=== PATIENT | female | born 1995 | race Caucasian/White ===

== ENCOUNTER 2024-02-09 04:27 | Day surgery (SDC) | payer OTHER ==
[~2024-02-09] VITALS: Ht 160 cm; Wt 73.2 kg
[2024-02-09] VITALS (218 sets, daily range): BP systolic 93–158; BP diastolic 55–100
[2024-02-09] MEDS ORDERED: FAMOTIDINE 20 MG/TAB PO PRN (08:50)
[2024-02-09] MEDS ORDERED: ALBUTEROL SULFATE 2.5 MG VIAL IN PRN (08:50)
[2024-02-09] MEDS ORDERED: SCOPOLAMINE 1.5 MG DIS TD PRN (08:50)
[2024-02-09] MEDS ORDERED: CYANOCOBALAMIN 500 MCG/TAB ( B12) PO PRN (08:50)
[2024-02-09] MEDS ORDERED: cloNIDine HCL 0.1 MG/TAB PO PRN (08:50)
[2024-02-09] MEDS ORDERED: LACTATED RINGER'S 1,000 ML IV PRN ×3 (08:50→19:00)
[2024-02-09] MEDS ORDERED: PANTOPRAZOLE SODIUM Sesquihydr 40 MG/TAB PO PRN (08:50)
[2024-02-09] MEDS ORDERED: diazePAM 5 MG/TAB PO PRN ×2 (08:50)
[2024-02-09] MEDS ORDERED: ASCORBIC ACID 4,000 MG in SODIUM CHLORIDE 0.9% 1,000 ML IV SCH (09:00)
[2024-02-09] MEDS ORDERED: TRAZODONE50 MG PO (09:39)
[2024-02-09] MEDS ORDERED: DICYCLOMINE HCL20 MG PO (09:39)
[2024-02-09] MEDS ORDERED: XANAX0.5 MG PO (09:40)
[2024-02-09] MEDS ORDERED: ROPINIROLE1 MG PO (09:41)
[2024-02-09] MEDS ORDERED: ZOFRAN4 MG/TAB PO (09:41)
[2024-02-09] MEDS ORDERED: STOOL SOFTENER100 M1 PO (09:42)
[2024-02-09] MEDS ORDERED: NALTREXONE HCL 50 MG/TAB VT PRN (09:45)
[2024-02-09] MEDS ORDERED: DiphenhydrAMINE HCL 50 MG/ML SDV IV PRN (09:45)
[2024-02-09] MEDS ORDERED: MAGNESIUM SULFATE HEPTAHYDRATE 100 ML IV PRN (09:45)
[2024-02-09] MEDS ORDERED: cloNIDine HCL 0.1 MG/TAB VT PRN (09:45)
[2024-02-09] MEDS ORDERED: LIDOCAINE HCL 1% (10MG/ML) 100 MG/10 ML MDV IV PRN (09:45)
[2024-02-09] MEDS ORDERED: STERILE WATER FOR IRRIGATION 1,000 ML BTL IR PRN (09:45)
[2024-02-09] MEDS ORDERED: ONDANSETRON HCl 4 MG/2 ML SDV IV PRN ×3 (09:45→19:00)
[2024-02-09] MEDS ORDERED: diazePAM 5 MG/TAB VT PRN (09:45)
[2024-02-09] MEDS ORDERED: OCTREOTIDE ACETATE 100 MCG/VIAL SDV SC PRN (09:45)
[2024-02-09] MEDS ORDERED: MIDAZOLAM HCL 2 MG/2 ML VIAL IV PRN (09:45)
[2024-02-09] MEDS ORDERED: cloNIDine HYDROCHLORIDE 100 MCG/ML 10 ML INJ IV PRN (09:45)
[2024-02-09] MEDS ORDERED: THIAMINE HCL 100 MG/ML 2ML VIAL IV PRN (09:45)
[2024-02-09] MEDS ORDERED: ROCURONIUM BROMIDE 10 MG/ML 5ML VIAL IV PRN (09:45)
[2024-02-09] MEDS ORDERED: PROPOFOL 10 MG/ML 100ML VIAL IV PRN (09:45)
[2024-02-09] MEDS ORDERED: PROPOFOL 100 ML IV PRN (09:45)
[2024-02-09] MEDS ORDERED: SUCCINYLCHOLINE CHLORIDE 20 MG/ML 10ML VIAL IV PRN (09:45)
[2024-02-09] MEDS ORDERED: LIDOCAINE HCL 1% (10MG/ML) 100 MG/10 ML MDV VT PRN ×2 (09:45)
[2024-02-09] MEDS ORDERED: DEXAMETHASONE SODIUM PHOSPHATE PF 10 MG/ML SDV IV PRN ×2 (09:45→19:00)
[2024-02-09 11:00] LABS: BASO% 0.5 % (0-3); EOS% 1.1 % (0-8); HEMATOCRIT 37.5 % (37.0-47.0); HEMOGLOBIN 12.6 g/dl (12.0-16.0); IMMATURE GRANULOCYTES 0.5 % (0.0-5.0); LYMPH% 40.1 % (15-41); MEAN CELL VOLUME 89.5 fL CALC (80.0-100.0); MEAN CORPUSCULAR HGB 30.1 pG CALC (26.0-32.0); MEAN CORPUSCULAR HGB CONC 33.6 g/dL CAL (32.0-36.0); MONO% 9.3 % (2-13); NEUT# 1.78 thou/uL (2.00-7.15); NEUT% 48.5 % (42-76); RED BLOOD COUNT 4.19 mill/uL (4.20-5.60); RED CELL DISTRI WIDTH 11.7 % (11.5-15.5)
[2024-02-09 11:08] LABS: ALBUMIN 4.4 g/dL (3.2-5.0); BILIRUBIN, TOTAL 0.5 mg/dL (0.02-1.3); CREATININE 0.9 mg/dL (0.5-1.0); POTASSIUM 4.7 mmol/l (3.5-5.1)
[2024-02-09] MEDS ORDERED: CLONIDINE0.1 MG PO (16:28)
[2024-02-09] MEDS ORDERED: NALTREXONE50 MG PO (16:28)
[2024-02-09] MEDS ORDERED: KLONOPIN2 MG PO (16:28)
[2024-02-09] MEDS ORDERED: clonazePAM 1 MG/TAB PO PRN (17:20)
[2024-02-09] MEDS ORDERED: PROMETHAZINE HCL 12.5 MG in SODIUM CHLORIDE 0.9% 50 ML IV PRN (19:00)
[2024-02-09] MEDS ORDERED: KETOROLAC TROMETHAMINE 30 MG/ML SDV IV PRN (19:00)
[2024-02-09] MEDS ORDERED: LORazepam 2 MG/ML IV PRN ×2 (19:00)
[2024-02-09] MEDS ORDERED: ACETAMINOPHEN 1,000 MG/100 ML VIAL IV PRN (19:00)
[2024-02-09] MEDS ORDERED: ACETAMINOPHEN 500 MG TAB PO PRN (19:00)
[2024-02-09] MEDS ORDERED: PROMETHAZINE HCL 25 MG in SODIUM CHLORIDE 0.9% 50 ML IV PRN (19:00)
[2024-02-09] MEDS ORDERED: HALOPERIDOL LACTATE 5 MG/ML SDV IV PRN (19:00)
[2024-02-09] MEDS ORDERED: PATIENT' OWN MED CONTROLLED 1 EA DOSE IV PRN (21:00)
[2024-02-09] MEDS ORDERED: cloNIDine HCL 0.1 MG/TAB PO SCH (23:00)
[2024-02-10 03:57] VITALS: BP 157/95
[2024-02-10] MEDS ORDERED: clonazePAM 1 MG/TAB PO PRN ×2 (04:00→08:00)
[2024-02-10] MEDS ORDERED: cloNIDine HCL 0.1 MG/TAB PO PRN ×2 (04:00→07:30)
[2024-02-10 04:51] LABS: BASO% 0.1 % (0-3); HEMATOCRIT 37.8 % (37.0-47.0); IMMATURE GRANULOCYTES 0.8 % (0.0-5.0); LYMPH% 6.9 % (15-41); MEAN CELL VOLUME 87.5 fL CALC (80.0-100.0); MEAN CORPUSCULAR HGB 30.1 pG CALC (26.0-32.0); MEAN CORPUSCULAR HGB CONC 34.4 g/dL CAL (32.0-36.0); MONO% 2.3 % (2-13); NEUT# 7.13 thou/uL (2.00-7.15); NEUT% 89.9 % (42-76); RED BLOOD COUNT 4.32 mill/uL (4.20-5.60); RED CELL DISTRI WIDTH 11.8 % (11.5-15.5)
[2024-02-10 05:08] LABS: ALBUMIN 4.3 g/dL (3.2-5.0); BILIRUBIN, TOTAL 0.6 mg/dL (0.02-1.3); CREATININE 0.8 mg/dL (0.5-1.0); MAGNESIUM 1.7 mg/dL (1.6-2.3); POTASSIUM 3.9 mmol/l (3.5-5.1)
[2024-02-10] MEDS ORDERED: ALBUTEROL SULFATE 2.5 MG VIAL IN PRN (07:30)
[2024-02-10] MEDS ORDERED: FAMOTIDINE 20 MG/TAB PO PRN (07:30)
[2024-02-10] MEDS ORDERED: PANTOPRAZOLE SODIUM Sesquihydr 40 MG/TAB PO PRN (07:30)
[2024-02-10] MEDS ORDERED: diazePAM 5 MG/TAB PO PRN ×2 (07:30→08:30)
[2024-02-10] MEDS ORDERED: CYANOCOBALAMIN 500 MCG/TAB ( B12) PO PRN (07:30)
[2024-02-10] MEDS ORDERED: LACTATED RINGER'S 1,000 ML IV PRN (07:30)
[2024-02-10] MEDS ORDERED: SCOPOLAMINE 1.5 MG DIS TD PRN (07:30)
[2024-02-10] MEDS ORDERED: PANTOPRAZOLE SODIUM Sesquihydr 40 MG/TAB PO SCH (08:00)
[2024-02-10] MEDS ORDERED: ASCORBIC ACID 4,000 MG in SODIUM CHLORIDE 0.9% 1,000 ML IV SCH (08:00)
[2024-02-10] MEDS ORDERED: NALTREXONE HCL 50 MG/TAB PO SCH (08:00)
[2024-02-10] MEDS ORDERED: cloNIDine HCL 0.1 MG/TAB PO SCH (08:00)
[2024-02-10] MEDS ORDERED: MAGNESIUM SULFATE HEPTAHYDRATE 50 ML IV SCH (08:00)
[2024-02-10] MEDS ORDERED: ACETAMINOPHEN 325 MG/TAB PO SCH (08:00)
[2024-02-10] MEDS ORDERED: ACETAMINOPHEN 500 MG TAB PO PRN (09:00)
[2024-02-10] MEDS ORDERED: MAGNESIUM OXIDE 400 MG/TAB PO PRN (09:00)
[2024-02-10] MEDS ORDERED: Cholecalciferol 2,000 UNIT/TAB PO PRN (09:00)
[2024-02-10 09:19] VITALS: BP 155/74
[2024-02-10] MEDS ORDERED: cloNIDine HCL 0.1 MG/TAB PO ONE (09:30)
[2024-02-10] MEDS ORDERED: NALTREXONE HCL 50 MG/TAB PO ONE (11:40)
== END 2024-02-10 15:20 | disposition home or self-care (01) | DRG 897 ==
LOC: ANR 04:27 → MS2 04:29 → ANR 09:00
PROVIDERS: ATTEND Anesthesiology
DX: F11.20 Opioid dependence, uncomplicated (principal)
CPT/HCPCS: J1100; J2060; J2354; J3475; J3490